=== PATIENT | male | born 1955 | race Caucasian/White ===

== ENCOUNTER → 2023-11-28 16:17 | Outpatient (REF) | payer OTHER, SELFPAY | LOC: RAD 16:17 | PROVIDERS: ATTENDING PHYSICIAN Internal Medicine Endocrinology, Diabetes & Metabolism; FAMILY PHYSICIAN Family Medicine | DX: E27.9 Disorder of adrenal gland, unspecified (principal) | CPT/HCPCS: 74150 ==

== ENCOUNTER 2025-01-13 06:29 | Day surgery (SDC) | payer OTHER, SELFPAY ==
[2025-01-13 09:28] VITALS: BMI 30.2
[2025-01-13 09:29] VITALS: BP 152/84; BMI 30.2
[2025-01-13] MEDS: PRED FORTE 1% EYE DROPS 3 DROP OPHTH (09:30)
[2025-01-13] MEDS: ALCAINE 0.5% EYE DROPS 4 DROP OPHTH (09:30)
[2025-01-13] MEDS: POLYTRIM OPHTHALMIC SOLUTION 3 DROP OPHTH (09:31)
[2025-01-13] MEDS: NEO-SYNEPHRINE 2.5% OPH SOL. 3 DROP OPHTH (09:31)
[2025-01-13] MEDS: MYDRIACYL 3 DROP OPHTH ×2 (09:31→09:32)
[2025-01-13] MEDS: ACUVAIL 3 DROPS OPHTH (09:32)
[2025-01-13] MEDS: CYCLOGYL 1% EYE DROPS 3 DROP OPHTH (09:32)
[2025-01-13] MEDS: AKTEN OPHTHALMIC GEL 1 ML OPHTH (09:33)
[2025-01-13] MEDS: NORMOSOL-R/PLASMALYTE-A 1000 IV (09:39)
[2025-01-13 10:20] VITALS: BP 131/79
== END 2025-01-13 11:15 | disposition home or self-care (01) ==
LOC: SDS 06:29
PROVIDERS: ATTENDING PHYSICIAN Ophthalmology
DX: H25.12 Age-related nuclear cataract, left eye (principal)
CPT/HCPCS: 66984

== ENCOUNTER 2025-01-27 06:24 | Day surgery (SDC) | payer OTHER, SELFPAY ==
[2025-01-27 09:44] VITALS: BMI 30.9
[2025-01-27] MEDS: ALCAINE 0.5% EYE DROPS 4 DROP OPHTH (09:44)
[2025-01-27 09:45] VITALS: BP 161/90; BMI 30.9
[2025-01-27] MEDS: NEO-SYNEPHRINE 2.5% OPH SOL. 3 DROP OPHTH (09:46)
[2025-01-27] MEDS: PRED FORTE 1% EYE DROPS 3 DROP OPHTH (09:46)
[2025-01-27] MEDS: POLYTRIM OPHTHALMIC SOLUTION 3 DROP OPHTH (09:46)
[2025-01-27] MEDS: MYDRIACYL 3 DROP OPHTH (09:47)
[2025-01-27] MEDS: CYCLOGYL 1% EYE DROPS 3 DROP OPHTH (09:47)
[2025-01-27] MEDS: NORMOSOL-R/PLASMALYTE-A 1000 IV (09:47)
[2025-01-27] MEDS: AKTEN OPHTHALMIC GEL 1 ML OPHTH (09:48)
[2025-01-27] MEDS: ACUVAIL 3 DROPS OPHTH (09:49)
[2025-01-27 10:38] VITALS: BP 147/71
== END 2025-01-27 11:08 | disposition home or self-care (01) ==
LOC: SDS 06:24
PROVIDERS: ATTENDING PHYSICIAN Ophthalmology
DX: H25.11 Age-related nuclear cataract, right eye (principal)
CPT/HCPCS: 66984